=== PATIENT | female | born 1935 | race Hispanic/Latino ===

== ENCOUNTER → 2019-07-15 | Outpatient (CLI) | payer OTHER | END | disposition home or self-care (01) | LOC: RAH 08:55 | PROVIDERS: ATTEND Internal Medicine | DX: R60.0 Localized edema (principal); Z86.718 Personal history of other venous thrombosis and embolism | CPT/HCPCS: 93971 ==

== ENCOUNTER 2021-01-04 21:21 | Inpatient (IN) | payer OTHER ==
[~2021-01-04] VITALS: Ht 149.9 cm; Wt 72.5 kg
[2021-01-04 22:01] LABS: BASOPHILS % (AUTO) 0.4 % (0.0-5.0); EOSINOPHILS % (AUTO) 0.8 % (0.0-8.0); HEMATOCRIT 36.8 % (36-48); LYMPHOCYTES % (AUTO) 13.7 % (21.0-51.0); MEAN CORPUSCULAR HEMOGLOBIN 28.4 pg (27.0-33.0); MEAN CORPUSCULAR HGB CONC 31.3 g/dL (32.0-36.0); MEAN CORPUSCULAR VOLUME 90.9 fL (79-99); MONOCYTES % (AUTO) 5.1 % (3.0-13.0); NEUTROPHILS % (AUTO) 79.2 % (40.0-77.0); NUCLEATED RED BLOOD CELLS 3.6 % (0.0-0.19); PLATELET COUNT (AUTO) 176 K/uL (130-400); RED BLOOD CELL COUNT(AUTO) 4.05 MIL/uL (4.00-5.50); RED CELL DISTRIBUTION WIDTH 18.6 % (11.0-15.5); WHITE BLOOD COUNT (AUTO) 4.7 K/uL (4.8-10.8)
[2021-01-04 22:14] LABS: INR 1.63 (0.85-1.15)
[2021-01-04 22:15] LABS: ALBUMIN 3.1 g/dL (3.5-5.0); BILIRUBIN,TOTAL 1.3 mg/dL (0.2-1.0); CREATININE 2.6 mg/dL (0.5-1.5); PARTIAL THROMBOPLASTIN TIME 30.8 SEC (26.3-35.5); TOTAL PROTEIN, SERUM 8.4 g/dL (6.0-8.3)
[2021-01-04 22:27] LABS: B-TYPE NATRIURETIC PEPTIDE > 5000 pg/mL (0-100)
[2021-01-04] MEDS ORDERED: KAYEXALATE 15GM/60ML ONE (22:47)
[2021-01-04] MEDS ORDERED: CALCIUM GLUC 1GM/10ML VIAL IV ONE (22:47)
[2021-01-04] MEDS ORDERED: DEXTROSE 50%-WATER 50 ML DISP.SYRIN IV ONE (22:47)
[2021-01-04] MEDS ORDERED: INSULIN HUMULIN R 100 UNIT/ML 3ML ONE (22:48)
[2021-01-04] MEDS ORDERED: ALBUTEROL 0.083% 2.5 MG/3 ML INH IH ONE (22:49)
[2021-01-04] MEDS ORDERED: 0.9% NACL 500ML IV.SOLN 500 ML IV ONE (22:52)
[2021-01-04 22:53] LABS: ABG OXYGEN SATURATION 28.5 % (95.0-99.0); BASE EXCESS,VENOUS BLOOD GAS -8.4 (-2.0-3.0); HCO3,VENOUS BLOOD GAS 17.9 (21.0-28.0); PCO2,VENOUS BLOOD GAS 40 (32-45); PH,VENOUS BLOOD GAS 7.272 (7.350-7.450)
[2021-01-04] MEDS ORDERED: SODIUM BICARB 50MEQ 50ML VIAL 50 ML ONE (23:25)
[2021-01-04] MEDS ORDERED: CEFTRIAXONE 1G VIAL IV SCH (23:30)
[2021-01-04] MEDS ORDERED: AZITHROMYCIN 500MG+NS 250ML 250 ML IV SCH (23:30)
[2021-01-05] VITALS (35 sets, daily range): BP systolic 120–180; BP diastolic 43–113
[2021-01-05] MEDS ORDERED: AZITHROMYCIN 500MG+NS 250ML 250 ML IV ONE (00:19)
[2021-01-05] MEDS ORDERED: CEFTRIAXONE 1G VIAL ONE (00:19)
[2021-01-05] MEDS ORDERED: 0.9%NACL 1000ML 1,000 ML IV ONE (01:48)
[2021-01-05] MEDS ORDERED: NOREPINEPHRIN 4MG/NS 250ML 250 ML IV ONE (01:56)
[2021-01-05 02:16] LABS: ABG BASE EXCESS -18.7 mmol/L (-2.0-3.0); ABG HCO3 8.1 mmol/L (21.0-28.0); ABG OXYGEN SATURATION 99.8 % (95.0-99.0); ABG PCO2 23 mmHg (32-45)
[2021-01-05] MEDS ORDERED: LORAZEPAM 2 MG/ML 1 ML VIAL ONE (02:18)
[2021-01-05] MEDS ORDERED: SODIUM BICARB 50MEQ 50ML VIAL 50 ML ONE ×2 (02:19→03:10)
[2021-01-05 02:50] LABS: ALBUMIN 2.8 g/dL (3.5-5.0); BILIRUBIN,TOTAL 0.9 mg/dL (0.2-1.0); CREATININE 2.5 mg/dL (0.5-1.5)
[2021-01-05 02:57] LABS: POTASSIUM 6.5 mmol/L (3.5-5.1)
[2021-01-05] MEDS ORDERED: ALBUTEROL 0.083% 2.5 MG/3 ML INH IH ONE (03:04)
[2021-01-05] MEDS ORDERED: CALCIUM GLUC 1GM/10ML VIAL IV ONE (03:09)
[2021-01-05] MEDS ORDERED: FUROSEMIDE 40MG VIAL ONE (03:10)
[2021-01-05] MEDS ORDERED: DEXTROSE 50%-WATER 50 ML DISP.SYRIN IV ONE (03:10)
[2021-01-05] MEDS ORDERED: INSULIN HUMULIN R 100 UNIT/ML 3ML ONE (03:11)
[2021-01-05] MEDS ORDERED: DEXMEDETOMIDINE HCL 200 MCG/2 ML VIAL IV ONE (05:44)
[2021-01-05] MEDS ORDERED: DEXMEDETOMIDINE HCL 400 MCG in 0.9%NACL 100ML 100 ML IV SCH (05:45)
[2021-01-05] MEDS ORDERED: 0.9%NACL 100ML 100 ML IV ONE (05:45)
[2021-01-05 06:39] LABS: ABG BASE EXCESS -9.7 mmol/L (-2.0-3.0); ABG HCO3 15.4 mmol/L (21.0-28.0); ABG OXYGEN SATURATION 99.8 % (95.0-99.0); ABG PCO2 32 mmHg (32-45)
[2021-01-05] MEDS: FAMOTIDINE 20MG TAB PO SCH (09:00)
[2021-01-05] MEDS ORDERED: SOLU-MEDROL 125MG VIAL IV SCH ×2 (09:00)
[2021-01-05] MEDS ORDERED: ENOXAPARIN SODIUM 30 MG/0.3 ML SQ SCH (09:00)
[2021-01-05] MEDS: HEPARIN 5,000 UNIT VIAL SQ SCH ×2 (09:19→20:35)
[2021-01-05] MEDS: LABETALOL 20MG SYG IV PRN (12:24)
[2021-01-05] MEDS ORDERED: LACTATED RINGERS 1000ML IV SCH (13:00)
[2021-01-05] MEDS ORDERED: SODIUM BICARB 50MEQ 50ML VIAL IV SCH (13:00)
[2021-01-05 13:53] LABS: CRP QUANTITATIVE 27.6 mg/L (0.00-9.0)
[2021-01-05] MEDS ORDERED: CALCIUM GLUC 1GM/10ML VIAL IV SCH (14:15)
[2021-01-05] MEDS ORDERED: CALCIUM GLUC 1GM 1 GM in 0.9%NACL 100ML 100 ML IV SCH (14:15)
[2021-01-05] MEDS: SOLU-MEDROL 40MG VIAL IVP SCH (20:36)
[2021-01-05 21:00] LABS: APPEARANCE,URINE Clear (CLEAR); BILIRUBIN,URINE Negative (NEGATIVE); COLOR,URINE Yellow (YELLOW); GLUCOSE, URINE (UA) Negative (NEGATIVE); KETONES,URINE Trace mg/dL (NEGATIVE); LEUKOCYTE ESTERASE ,URINE Trace (NEGATIVE); NITRATE,URINE Negative (NEGATIVE); OCCULT BLOOD,URINE Negative (NEGATIVE); PROTEIN,URINE Negative (NEGATIVE)
[2021-01-05 21:02] LABS: CHLORIDE,URINE RANDOM 83 mmol/L (110-250); POTASSIUM,URINE RANDOM 59 mmol/L (25-125); SODIUM,URINE RANDOM 40 mmol/l (40-220)
[2021-01-05 21:10] LABS: BACTERIA,URINE Few /HPF (None Seen); MUCUS,URINE Few LPF (None Seen); RBC,URINE 0-1 /HPF (0-1); SQUAMOUS EPITHELIAL CELL,UR Few /HPF (0-2); WBC,URINE 0-1 /HPF (0-1)
[2021-01-06] VITALS (25 sets, daily range): BP systolic 116–207; BP diastolic 46–113
[2021-01-06 04:47] LABS: HEMATOCRIT 34.1 % (36-48); MEAN CORPUSCULAR HEMOGLOBIN 27.8 pg (27.0-33.0); MEAN CORPUSCULAR HGB CONC 31.7 g/dL (32.0-36.0); MEAN CORPUSCULAR VOLUME 87.7 fL (79-99); PLATELET COUNT (AUTO) 145 K/uL (130-400); RED BLOOD CELL COUNT(AUTO) 3.89 MIL/uL (4.00-5.50); RED CELL DISTRIBUTION WIDTH 18.3 % (11.0-15.5)
[2021-01-06 05:01] LABS: CREATININE 1.7 mg/dL (0.5-1.5); CRP QUANTITATIVE 26.1 mg/L (0.00-9.0); MAGNESIUM 1.8 mg/dL (1.80-2.40); PHOSPHORUS 4.9 mg/dL (2.5-4.9); POTASSIUM 5.3 mmol/L (3.5-5.1); URIC ACID 14.8 mg/dL (2.6-7.2)
[2021-01-06 05:32] LABS: LYMPHOCYTES % (MANUAL) 2 % (22-44); MAN.DIFF COMMENT-IMPRESSION MANUAL DIFFERENTIAL; MONOCYTES % (MANUAL) 4 % (2-9); SEGMENTED NEUTROPHILS % 94 % (40-70)
[2021-01-06 05:33] LABS: PLATELET MORPHOLOGY COMMENT SLIGHTLY DECREASED
[2021-01-06] MEDS: LABETALOL 20MG SYG IV PRN ×3 (06:49→23:30)
[2021-01-06 06:51] LABS: ABG BASE EXCESS -1.4 mmol/L (-2.0-3.0); ABG HCO3 23.4 mmol/L (21.0-28.0); ABG OXYGEN SATURATION 99.6 % (95.0-99.0); ABG PCO2 40 mmHg (32-45)
[2021-01-06] MEDS: SOLU-MEDROL 40MG VIAL IVP SCH ×2 (08:00→20:18)
[2021-01-06] MEDS: FAMOTIDINE 20MG TAB PO SCH (08:00)
[2021-01-06] MEDS: ACETAMINOPHEN 325 MG TAB PO PRN (08:01)
[2021-01-06] MEDS: HEPARIN 5,000 UNIT VIAL SQ SCH ×2 (08:02→20:18)
[2021-01-07] VITALS (7 sets, daily range): BP systolic 147–164; BP diastolic 62–98
[2021-01-07] MEDS ORDERED: SOLU-MEDROL 125MG VIAL IVP SCH (04:00)
[2021-01-07 04:30] LABS: HEMATOCRIT 32.9 % (36-48); MEAN CORPUSCULAR HEMOGLOBIN 28.5 pg (27.0-33.0); MEAN CORPUSCULAR HGB CONC 32.5 g/dL (32.0-36.0); MEAN CORPUSCULAR VOLUME 87.7 fL (79-99); RED BLOOD CELL COUNT(AUTO) 3.75 MIL/uL (4.00-5.50); RED CELL DISTRIBUTION WIDTH 18.6 % (11.0-15.5); WHITE BLOOD COUNT (AUTO) 6.1 K/uL (4.8-10.8)
[2021-01-07 04:54] LABS: ALBUMIN 2.7 g/dL (3.5-5.0); BILIRUBIN,TOTAL 0.6 mg/dL (0.2-1.0); CREATININE 1.7 mg/dL (0.5-1.5); MAGNESIUM 2.3 mg/dL (1.80-2.40); PHOSPHORUS 4.2 mg/dL (2.5-4.9); POTASSIUM 4.7 mmol/L (3.5-5.1); TOTAL PROTEIN, SERUM 7.6 g/dL (6.0-8.3)
[2021-01-07] MEDS: HEPARIN 5,000 UNIT VIAL SQ SCH ×2 (08:47→20:38)
[2021-01-07] MEDS: FAMOTIDINE 20MG TAB PO SCH (08:48)
[2021-01-07] MEDS: SOLU-MEDROL 40MG VIAL IVP SCH ×2 (08:48→20:40)
[2021-01-07] MEDS: ALLOPURINOL 100 MG TABLET PO SCH (08:52)
[2021-01-07] MEDS: ACETAMINOPHEN 325 MG TAB PO PRN (18:15)
[2021-01-07] MEDS: HONEY 1 APPL/ML TUBE TP SCH (19:20)
[2021-01-08 04:00] VITALS: BP 149/79
[2021-01-08 04:49] LABS: HEMATOCRIT 34.9 % (36-48); MEAN CORPUSCULAR HEMOGLOBIN 27.5 pg (27.0-33.0); MEAN CORPUSCULAR HGB CONC 30.7 g/dL (32.0-36.0); MEAN CORPUSCULAR VOLUME 89.7 fL (79-99); NUCLEATED RED BLOOD CELLS 1.9 % (0.0-0.19); RED BLOOD CELL COUNT(AUTO) 3.89 MIL/uL (4.00-5.50); RED CELL DISTRIBUTION WIDTH 18.6 % (11.0-15.5); WHITE BLOOD COUNT (AUTO) 5.2 K/uL (4.8-10.8)
[2021-01-08 05:02] LABS: CREATININE 1.3 mg/dL (0.5-1.5); MAGNESIUM 1.9 mg/dL (1.80-2.40); POTASSIUM 4.8 mmol/L (3.5-5.1)
[2021-01-08 07:42] VITALS: BP 154/96
[2021-01-08] MEDS ORDERED: METO100T14 PO (09:30)
[2021-01-08] MEDS ORDERED: IBUP-2070 PO (09:30)
[2021-01-08] MEDS ORDERED: TORS20TA4 PO (09:30)
[2021-01-08] MEDS ORDERED: POTA-79 PO (09:30)
[2021-01-08] MEDS ORDERED: PRAV40TA3 PO (09:30)
[2021-01-08] MEDS ORDERED: LOSA50TA64 PO (09:30)
[2021-01-08] MEDS ORDERED: FLUT16H EN (09:30)
[2021-01-08] MEDS ORDERED: LIGH1DRO OU (09:30)
[2021-01-08] MEDS ORDERED: MONT-39 PO (09:30)
[2021-01-08] MEDS ORDERED: ERYT1OIN7 OU (09:30)
[2021-01-08] MEDS ORDERED: LATA2.5D14 OD (09:30)
[2021-01-08] MEDS ORDERED: APIX2.5T PO (09:30)
[2021-01-08] MEDS ORDERED: [UNRECOGNIZED DRUG - CODE] OU (09:30)
[2021-01-08] MEDS: HEPARIN 5,000 UNIT VIAL SQ SCH ×2 (09:33→20:16)
[2021-01-08] MEDS: FAMOTIDINE 20MG TAB PO SCH (09:34)
[2021-01-08] MEDS: ALLOPURINOL 100 MG TABLET PO SCH (09:34)
[2021-01-08] MEDS: SOLU-MEDROL 40MG VIAL IVP SCH ×2 (09:34→21:12)
[2021-01-08 11:53] VITALS: BP 148/90
[2021-01-08 16:34] VITALS: BP 159/98
[2021-01-08] MEDS: ACETAMINOPHEN 325 MG TAB PO PRN ×2 (17:19→22:36)
[2021-01-08] MEDS: HONEY 1 APPL/ML TUBE TP SCH (17:50)
[2021-01-08] MEDS: LABETALOL 20MG SYG IV PRN ×2 (17:50→22:51)
[2021-01-08 18:48] LABS: BILIRUBIN,URINE Negative (NEGATIVE); COLOR,URINE Yellow (YELLOW); GLUCOSE, URINE (UA) Negative (NEGATIVE); KETONES,URINE Negative (NEGATIVE); LEUKOCYTE ESTERASE ,URINE Small (NEGATIVE); NITRATE,URINE Negative (NEGATIVE); OCCULT BLOOD,URINE Small (NEGATIVE); PH,URINE 5.5 (5.0-8.0); PROTEIN,URINE Trace mg/dL (NEGATIVE); UROBILINOGEN,URINE 0.2 mg/dL (0.2-1.0)
[2021-01-08 18:52] LABS: APPEARANCE,URINE CLOUDY (CLEAR)
[2021-01-08 19:05] LABS: AMORPHOUS SEDIMENT,UR Moderate /LPF (None Seen); BACTERIA,URINE Few /HPF (None Seen); SQUAMOUS EPITHELIAL CELL,UR Few /HPF (0-2)
[2021-01-08 20:00] VITALS: BP 154/92
[2021-01-09 00:06] VITALS: BP 160/73
[2021-01-09 03:52] LABS: HEMATOCRIT 35.4 % (36-48); MEAN CORPUSCULAR HEMOGLOBIN 27.5 pg (27.0-33.0); MEAN CORPUSCULAR HGB CONC 31.1 g/dL (32.0-36.0); MEAN CORPUSCULAR VOLUME 88.5 fL (79-99); RED CELL DISTRIBUTION WIDTH 17.9 % (11.0-15.5)
[2021-01-09 04:00] VITALS: BP 158/89
[2021-01-09 04:21] LABS: CREATININE 1.5 mg/dL (0.5-1.5); PHOSPHORUS 3.7 mg/dL (2.5-4.9); POTASSIUM 4.9 mmol/L (3.5-5.1)
[2021-01-09 08:00] VITALS: BP 149/90
[2021-01-09] MEDS: FAMOTIDINE 20MG TAB PO SCH (08:40)
[2021-01-09] MEDS: ALLOPURINOL 100 MG TABLET PO SCH (08:40)
[2021-01-09] MEDS: SOLU-MEDROL 40MG VIAL IVP SCH ×2 (08:40→21:39)
[2021-01-09] MEDS: HEPARIN 5,000 UNIT VIAL SQ SCH ×2 (08:53→21:40)
[2021-01-09 12:10] VITALS: BP 137/87
[2021-01-09 16:00] VITALS: BP 154/96
[2021-01-09] MEDS: MIN OIL OU SCH ×3 (19:00→22:37)
[2021-01-09] MEDS: LIGHT MINERAL OIL OU SCH ×3 (19:00→22:37)
[2021-01-09 20:00] VITALS: BP 160/100
[2021-01-09] MEDS ORDERED: APIXABAN 2.5 MG TABLET PO SCH (21:00)
[2021-01-09] MEDS: SODIUM CHLORIDE 5% 15 ML OPHTH SOLN OU SCH (21:38)
[2021-01-09] MEDS: ACETAMINOPHEN 325 MG TAB PO PRN (21:38)
[2021-01-09] MEDS: METOPROLOL TARTRATE 50 MG TAB PO SCH (21:39)
[2021-01-09] MEDS: LATANOPROST 2.5 ML DROPS OD SCH (21:39)
[2021-01-09] MEDS: ATORVASTATIN 10 MG TABLET PO SCH (21:42)
[2021-01-09] MEDS ORDERED: ACETAMINOPHEN 325 MG TAB PO PRN (21:45)
[2021-01-10] MEDS: LIGHT MINERAL OIL OU SCH ×10 (00:26→23:00)
[2021-01-10] MEDS: MIN OIL OU SCH ×10 (00:26→23:00)
[2021-01-10 00:27] VITALS: BP 142/74
[2021-01-10 04:34] LABS: HEMATOCRIT 37.1 % (36-48); MEAN CORPUSCULAR HEMOGLOBIN 27.3 pg (27.0-33.0); MEAN CORPUSCULAR VOLUME 87.9 fL (79-99); NUCLEATED RED BLOOD CELLS 5.5 % (0.0-0.19); PLATELET COUNT (AUTO) 98 K/uL (130-400); RED BLOOD CELL COUNT(AUTO) 4.22 MIL/uL (4.00-5.50); RED CELL DISTRIBUTION WIDTH 18.3 % (11.0-15.5); WHITE BLOOD COUNT (AUTO) 4.6 K/uL (4.8-10.8)
[2021-01-10 04:49] VITALS: BP 154/88
[2021-01-10 04:49] LABS: CREATININE 1.4 mg/dL (0.5-1.5); MAGNESIUM 2.1 mg/dL (1.80-2.40); POTASSIUM 4.6 mmol/L (3.5-5.1)
[2021-01-10 08:00] VITALS: BP 160/93
[2021-01-10] MEDS: FAMOTIDINE 20MG TAB PO SCH (08:33)
[2021-01-10] MEDS: LOSARTAN 50 MG TABLET PO SCH (08:33)
[2021-01-10] MEDS: METOPROLOL TARTRATE 50 MG TAB PO SCH ×2 (08:34→20:23)
[2021-01-10] MEDS: SOLU-MEDROL 40MG VIAL IVP SCH ×2 (08:34→20:31)
[2021-01-10] MEDS: HEPARIN 5,000 UNIT VIAL SQ SCH ×2 (08:36→20:21)
[2021-01-10] MEDS ORDERED: KCL 20 MEQ ERTAB PO SCH (09:00)
[2021-01-10] MEDS: TORSEMIDE 20 MG TAB PO SCH (09:26)
[2021-01-10] MEDS: ALLOPURINOL 100 MG TABLET PO SCH (09:26)
[2021-01-10] MEDS: MONTELUKAST SODIUM 10 MG TAB PO SCH (09:27)
[2021-01-10] MEDS: SODIUM CHLORIDE 5% 15 ML OPHTH SOLN OU SCH ×4 (09:31→20:53)
[2021-01-10] MEDS: LATANOPROST 2.5 ML DROPS OD SCH ×2 (09:31→20:53)
[2021-01-10 12:00] VITALS: BP 148/97
[2021-01-10] MEDS ORDERED: [UNRECOGNIZED DRUG - REMARK] MISC SCH ×2 (12:30→18:15)
[2021-01-10] MEDS: KCL 20 MEQ ERTAB PO SCH (13:59)
[2021-01-10] MEDS: FLUTICASONE PROPIONATE 50MCG/SPRAY 16 GM BOTTLE EN SCH (14:00)
[2021-01-10 16:00] VITALS: BP 159/95
[2021-01-10] MEDS ORDERED: SIMETHICONE 80 MG TAB.CHEW PO PRN (19:15)
[2021-01-10] MEDS ORDERED: LACTULOSE 20 GM/30 ML UDCUP PO PRN (19:15)
[2021-01-10 20:00] VITALS: BP 156/103
[2021-01-10] MEDS: ATORVASTATIN 10 MG TABLET PO SCH (20:24)
[2021-01-11 00:05] VITALS: BP 155/95
[2021-01-11] MEDS: MIN OIL OU SCH ×12 (01:00→23:00)
[2021-01-11] MEDS: LIGHT MINERAL OIL OU SCH ×12 (01:00→23:00)
[2021-01-11 04:00] VITALS: BP 168/81
[2021-01-11] MEDS: LABETALOL 20MG SYG IV PRN (05:09)
[2021-01-11 06:04] LABS: HEMATOCRIT 37.5 % (36-48); MEAN CORPUSCULAR HEMOGLOBIN 27.4 pg (27.0-33.0); MEAN CORPUSCULAR HGB CONC 31.5 g/dL (32.0-36.0); NUCLEATED RED BLOOD CELLS 8.7 % (0.0-0.19); PLATELET COUNT (AUTO) 97 K/uL (130-400); RED BLOOD CELL COUNT(AUTO) 4.31 MIL/uL (4.00-5.50); RED CELL DISTRIBUTION WIDTH 18.6 % (11.0-15.5); WHITE BLOOD COUNT (AUTO) 2.5 K/uL (4.8-10.8)
[2021-01-11 06:20] LABS: ALBUMIN 2.8 g/dL (3.5-5.0); BILIRUBIN,TOTAL 1.5 mg/dL (0.2-1.0); CREATININE 1.8 mg/dL (0.5-1.5); TOTAL PROTEIN, SERUM 7.3 g/dL (6.0-8.3)
[2021-01-11 06:46] LABS: LYMPHOCYTES % (MANUAL) 14 % (22-44); MAN.DIFF COMMENT-IMPRESSION MANUAL DIFFERENTIAL; MONOCYTES % (MANUAL) 5 % (2-9); SEGMENTED NEUTROPHILS % 81 % (40-70)
[2021-01-11 06:47] LABS: PLATELET MORPHOLOGY COMMENT DECREASED
[2021-01-11 08:00] VITALS: BP 161/77
[2021-01-11] MEDS: FAMOTIDINE 20MG TAB PO SCH (08:29)
[2021-01-11] MEDS: LOSARTAN 50 MG TABLET PO SCH (08:29)
[2021-01-11] MEDS: METOPROLOL TARTRATE 50 MG TAB PO SCH ×2 (08:29→21:54)
[2021-01-11] MEDS: MONTELUKAST SODIUM 10 MG TAB PO SCH (08:29)
[2021-01-11] MEDS: ALLOPURINOL 100 MG TABLET PO SCH (08:29)
[2021-01-11] MEDS: TORSEMIDE 20 MG TAB PO SCH (08:29)
[2021-01-11] MEDS: HEPARIN 5,000 UNIT VIAL SQ SCH ×2 (08:31→21:53)
[2021-01-11] MEDS: SODIUM CHLORIDE 5% 15 ML OPHTH SOLN OU SCH ×4 (08:34→21:56)
[2021-01-11] MEDS: LATANOPROST 2.5 ML DROPS OD SCH ×2 (08:35→21:56)
[2021-01-11] MEDS: FLUTICASONE PROPIONATE 50MCG/SPRAY 16 GM BOTTLE EN SCH (08:35)
[2021-01-11] MEDS: KCL 20 MEQ ERTAB PO SCH (08:53)
[2021-01-11 12:00] VITALS: BP 151/79
[2021-01-11] MEDS: PREDNISONE 20 MG TABLET PO SCH (13:09)
[2021-01-11] MEDS ORDERED: 0.9%NACL 1000ML 1,000 ML IV ONE (14:59)
[2021-01-11] MEDS ORDERED: [UNRECOGNIZED DRUG - REMARK] MISC SCH (15:15)
[2021-01-11] MEDS: 0.9%NACL 1000ML 1,000 ML IV SCH (15:21)
[2021-01-11 16:00] VITALS: BP 154/79
[2021-01-11] MEDS: ACETAMINOPHEN 325 MG TAB PO PRN (17:53)
[2021-01-11 20:00] VITALS: BP 147/79
[2021-01-11] MEDS: ATORVASTATIN 10 MG TABLET PO SCH (21:53)
[2021-01-12] VITALS: BP 154/78
[2021-01-12] MEDS: LIGHT MINERAL OIL OU SCH ×4 (01:00→06:41)
[2021-01-12] MEDS: MIN OIL OU SCH ×4 (01:00→06:41)
[2021-01-12 03:42] LABS: HEMATOCRIT 36.9 % (36-48); MEAN CORPUSCULAR HEMOGLOBIN 27.2 pg (27.0-33.0); MEAN CORPUSCULAR HGB CONC 31.2 g/dL (32.0-36.0); MEAN CORPUSCULAR VOLUME 87.2 fL (79-99); NUCLEATED RED BLOOD CELLS 4.1 % (0.0-0.19); PLATELET COUNT (AUTO) 75 K/uL (130-400); RED BLOOD CELL COUNT(AUTO) 4.23 MIL/uL (4.00-5.50); RED CELL DISTRIBUTION WIDTH 18.6 % (11.0-15.5); WHITE BLOOD COUNT (AUTO) 3.1 K/uL (4.8-10.8)
[2021-01-12] MEDS: 0.9%NACL 1000ML 1,000 ML IV SCH (03:42)
[2021-01-12 03:55] LABS: CREATININE 1.6 mg/dL (0.5-1.5); MAGNESIUM 1.9 mg/dL (1.80-2.40); PHOSPHORUS 4.8 mg/dL (2.5-4.9); POTASSIUM 3.9 mmol/L (3.5-5.1)
[2021-01-12 03:58] LABS: LYMPHOCYTES % (MANUAL) 8 % (22-44); MONOCYTES % (MANUAL) 1 % (2-9); SEGMENTED NEUTROPHILS % 91 % (40-70)
[2021-01-12 03:59] LABS: MAN.DIFF COMMENT-IMPRESSION MANUAL DIFFERENTIAL
[2021-01-12 04:00] VITALS: BP 147/61
[2021-01-12] MEDS: LOSARTAN 50 MG TABLET PO SCH (08:14)
[2021-01-12] MEDS: FAMOTIDINE 20MG TAB PO SCH (08:15)
[2021-01-12] MEDS: METOPROLOL TARTRATE 50 MG TAB PO SCH (08:15)
[2021-01-12] MEDS: PREDNISONE 20 MG TABLET PO SCH (08:16)
[2021-01-12] MEDS: HEPARIN 5,000 UNIT VIAL SQ SCH (08:19)
[2021-01-12] MEDS: MONTELUKAST SODIUM 10 MG TAB PO SCH (08:19)
[2021-01-12] MEDS: FLUTICASONE PROPIONATE 50MCG/SPRAY 16 GM BOTTLE EN SCH (08:20)
[2021-01-12] MEDS: LATANOPROST 2.5 ML DROPS OD SCH (08:21)
[2021-01-12] MEDS: SODIUM CHLORIDE 5% 15 ML OPHTH SOLN OU SCH (08:21)
[2021-01-12] MEDS ORDERED: HYDR12.54 PO (08:54)
[2021-01-12] MEDS ORDERED: POTA-187 PO (08:54)
[2021-01-12] MEDS ORDERED: AMLO5TAB5 PO (08:54)
[2021-01-12 09:10] VITALS: BP 151/69
[2021-01-12] MEDS: TORSEMIDE 20 MG TAB PO SCH (09:23)
[2021-01-12 12:51] VITALS: BP 149/82
[2021-01-15] MEDS ORDERED: PREDNISONE 20 MG TABLET PO SCH (09:00)
== END 2021-01-12 14:00 | disposition home health service (06) | DRG 177 ==
LOC: EDH 21:21 → OBSVTOIN 23:17 → EDHIP 23:17 → 2BH 01-05 04:36 → 2AH 01-06 14:28
PROVIDERS: ADMIT Internal Medicine Pulmonary Disease; ATTEND Internal Medicine Pulmonary Disease
PROC: 5A09357 Assistance with Respiratory Ventilation, Less than 24 Consecutive Hours, Continuous Positive Airway Pressure (ICD-10-PCS; principal; 2021-01-05)
DX: U07.1 COVID-19 (principal); J96.01 Acute respiratory failure with hypoxia; J12.82 Pneumonia due to coronavirus disease 2019; N17.9 Acute kidney failure, unspecified; E87.2 Acidosis; L97.929 Non-pressure chronic ulcer of unspecified part of left lower leg with unspecified severity; L97.919 Non-pressure chronic ulcer of unspecified part of right lower leg with unspecified severity; I13.0 Hypertensive heart and chronic kidney disease with heart failure and stage 1 through stage 4 chronic kidney disease, or unspecified chronic kidney disease; L97.819 Non-pressure chronic ulcer of other part of right lower leg with unspecified severity; Z68.31 Body mass index [BMI] 31.0-31.9, adult; I95.9 Hypotension, unspecified; I50.9 Heart failure, unspecified; E87.5 Hyperkalemia; E78.00 Pure hypercholesterolemia, unspecified; F41.9 Anxiety disorder, unspecified; E66.9 Obesity, unspecified; E78.5 Hyperlipidemia, unspecified; D64.9 Anemia, unspecified; N18.9 Chronic kidney disease, unspecified; E11.22 Type 2 diabetes mellitus with diabetic chronic kidney disease; I83.018 Varicose veins of right lower extremity with ulcer other part of lower leg; I83.028 Varicose veins of left lower extremity with ulcer other part of lower leg; E79.0 Hyperuricemia without signs of inflammatory arthritis and tophaceous disease; E86.0 Dehydration
CPT/HCPCS: 36415; 36600; 71045; 76770; 80048; 80051; 80053; 81001; 82010; 82435; 82550; 82728; 82803; 82947; 82948; 83605; 83615; 83690; 83735; 83880; 83935; 84100; 84132; 84145; 84156; 84295; 84484; 84550; 85018; 85025; 85027; 85378; 85610; 85730; 86140; 87040; 87088; 87426; 93005; 93970; 94640; 94660; 94760; 97039; 99291; G0378; J0456; J0610; J0696; J1644; J1815; J1940; J2060; J2920; J2930; J3490; J7030; J7040; J7070; J7120; U0003

== ENCOUNTER → 2021-05-04 | Outpatient (CLI) | payer OTHER ==
[~2021-05-04] MED LIST: AMLO5TAB5 PO; APIX2.5T PO; ERYT1OIN7 OU; FLUT16H EN; HYDR12.54 PO; LATA2.5D14 OD; LIGH1DRO OU; METO100T14 PO; MONT10TA32 PO; POTA10TA18 PO; PRAV40TA3 PO; TORS20TA4 PO; [UNRECOGNIZED DRUG - CODE] OU
== END | disposition home or self-care (01) ==
LOC: RAH 14:46
PROVIDERS: ATTEND Internal Medicine Cardiovascular Disease
DX: I87.2 Venous insufficiency (chronic) (peripheral) (principal)
CPT/HCPCS: 93970